=== PATIENT | female | born 1970 | race Caucasian/White ===

== ENCOUNTER 2017-08-28 07:17 | Inpatient (IN) | payer OTHER ==
--- NOTE | 2017-08-28 08:22 | HP ---
CHIEF COMPLAINT: Right lower quadrant abdominal pain. HISTORY OF PRESENT ILLNESS: The patient is a 47-year-old female who 5 days ago started having some r ight-sided back pain. Then yesterday after lunch it moved to be right lower quadrant abdominal pain associated with nausea, no vomiting, no fever. She has had loose stool and she had blood in her stoo l. PAST MEDICAL HISTORY: Hypothyroidism, hypertension, obesity, anxiety. PAST SURGICAL HISTORY: Shoulder surgery, wrist surgery, , hysterectomy, and lumpectomy. MEDICATIONS: Levothyroxine, lisinopril, Ambien, Paxil. ALLERGIES: She is allergic to IVP DYE, HYDROCODONE and BACTRIM. SOCIAL HISTORY: . She works for [employer]. No tobacco, rare alcohol. FAMILY HISTORY: Diabetes, hypertension and heart disease. PHYSICAL EXAMINATION: VITAL SIGNS: She is afebrile, pulse 82, blood pressure 124/90. GENERAL: Obese female lying still, awake, alert and oriented. HEENT: Unremarkable. LUNGS: Clear. HEART: Regular rate and rhythm. ABDOMEN: Obese, soft. She has a well healed surgical scar low midline. She has percussion tenderne ss in the right lower quadrant, no palpable masses. EXTREMITIES: Unremarkable. LABORATORY AND X-RAY FINDINGS: White count 10, H&H 13 and 41, platelet count 200. Urinalysis clear. Electrolytes are fine. Elevated glucose at 104. CT scan shows an appendicolith with a dilated appendix consistent with acute appendicitis. ASSESSMENT: Acute appendicitis. PLAN: We will attempt a laparoscopic approach for a laparoscopic appendectomy, possible open dependi ng on the degree of adhesions.
[2017-08-28] MEDS ORDERED: cefTRIAXone\\ROCEPHIN 2 GM in Sodium Chloride 0.9% 100 ML IVPB SCH (08:30)
[2017-08-28] MEDS ORDERED: Piperacillin/Tazobactam 4.5 GM VIAL ONE (09:09)
[2017-08-28] MEDS ORDERED: cefOXitin 2 GM in Sodium Chloride 0.9% 100 ML IVPB SCH (10:00)
[2017-08-28] MEDS ORDERED: Fentanyl 100 MCG/2 ML VIAL ONE ×4 (11:29→14:17)
[2017-08-28] MEDS ORDERED: Bupivacaine/Epinephrine 0.25% 30 ML VIAL ONE (13:10)
[2017-08-28] MEDS ORDERED: Succinylcholine Chloride 20 MG/ML 10 ml SYRINGE FS ONE (13:18)
[2017-08-28] MEDS ORDERED: Promethazine HCl 25 MG/ML VIAL IM PRN ×2 (14:04→14:11)
[2017-08-28] MEDS ORDERED: hydrALAZINE 20 MG/ML VIAL SLOW IVP PRN (14:04)
[2017-08-28] MEDS ORDERED: Ondansetron HCl/PF 4 MG/2 ML Vial IVP PRN ×2 (14:04→14:11)
[2017-08-28] MEDS ORDERED: HYDROcodone/Acetaminophen 10/325 mg Tablet PO PRN ×2 (14:04)
[2017-08-28] MEDS ORDERED: Dextrose 50% Abboject 50 ML SYRINGE SLOW IVP PRN (14:04)
[2017-08-28] MEDS ORDERED: Dextrose 5% in Water 1,000 ML IV PRN (14:04)
[2017-08-28] MEDS ORDERED: Promethazine HCl 25 MG/ML VIAL SLOW IVP PRN (14:11)
[2017-08-28] MEDS ORDERED: Morphine Sulfate 2 MG/ML SYRINGE SLOW IVP PRN (14:11)
--- NOTE | 2017-08-28 14:12 | OP ---
PREOPERATIVE DIAGNOSIS: Acute appendicitis. SURGEON: Louis Terry M.D. PROCEDURE PERFORMED: Laparoscopic appendectomy. INDICATIONS: A 47-year-old female who presented with a 12-hour history of right lower quadrant pain radiating to back associated with nausea. CT scan showed appendicitis. FINDINGS: Acute suppurative nonperforated appendicitis. PROCEDURE IN DETAIL: After informed consent was obtained, the patient was taken to the operating nick m and given general endotracheal anesthesia. She was placed in the supine position. Her abdomen was prepped and draped in usual fashion. She has had a previous low midline incision. So, I started on the right upper quadrant, made an incision, inserted Veress needle, insufflated the abdomen with 2 l iters of carbon dioxide. Utilizing a bladeless 5 mm trocar and 0 degree laparoscope, direct visual e ntry into the abdomen was performed. Pneumoperitoneum was then created to a pressure of 15 mmHg. Sh e had minimal adhesions along the anterior abdominal wall, so a 12 mm port was placed just below the umbilicus and another 5 mm port placed suprapubic. The mesoappendix divided with the LigaSure. The appendix divided utilizing a linear 45 mm white load stapler. The appendix placed in an Endosac cedrick georgina from the abdomen through the midline incision. Hemostasis assured. Wound irrigated. Irrigation fluid removed. The fascia closed with interrupted 0 Vicryl suture. The skin closed with interrupte d 4-0 Rapide. Dermabond applied. The patient tolerated the procedure well and was transferred to [facility] in good condition. Sponge and needle count verified correct x2.
[2017-08-28] MEDS ORDERED: Lactated Ringer's 1,000 ML IV SCH (14:15)
[2017-08-28] MEDS: Sodium Chloride 0.9% 1,000 ML IV SCH ×2 (15:36→17:52)
[2017-08-28 17:23] VITALS: TEMP 98.5
[2017-08-28] MEDS ORDERED: Ketorolac Tromethamine 30 MG/ML VIAL IVP SCH (18:00)
[2017-08-28] MEDS ORDERED: Piperacillin/Tazobactam 3.375 GM in Sodium Chloride 0.9% 100 ML IVPB SCH (18:00)
[2017-08-28] MEDS ORDERED: Famotidine/PF 20 mg/2ml Vial SLOW IVP SCH (21:00)
[2017-08-28] MEDS ORDERED: Famotidine 20 MG TAB PO SCH (21:00)
--- NOTE | 2017-08-29 04:06 | DIS ---
DISCHARGE DIAGNOSIS: Acute appendicitis. PROCEDURES DURING ADMISSION: Laparoscopic appendectomy. HOSPITAL COURSE: Patient was admitted, given IV antibiotics, taken to the operating room, where she underwent laparoscopic appendectomy. Postoperatively, she is doing well. Pain is controlled. She i s tolerating liquids. She is discharged home in good condition on Tylenol No. 3 and doxycycline. Emilie alvarado will follow up with me in 2 weeks.
[2017-08-29] MEDS ORDERED: Enoxaparin Sodium 40 MG/0.4 ML SYRINGE SC SCH (09:00)
== END 2017-08-28 18:04 | disposition home or self-care (01) | DRG 343 ==
LOC: ERS 07:17 → SURG A 09:36
PROVIDERS: ADMIT Surgery; ATTEND Surgery
PROC: 0DTJ4ZZ Resection of Appendix, Percutaneous Endoscopic Approach (ICD-10-PCS; principal; 2017-08-28)
DX: K35.80 Unspecified acute appendicitis (principal); I10 Essential (primary) hypertension; E03.9 Hypothyroidism, unspecified
CPT/HCPCS: 88304; J0696; J2270; J2543; J3010; J7050

== ENCOUNTER 2017-09-03 08:04 | Emergency (ER) | payer OTHER ==
[2017-09-03 08:28] LABS: #Eosinphils 0.2 thou/uL (0.0-0.7); #Lymphocytes 1.9 thou/uL (1.20-3.40); #Monocytes 0.6 thou/uL (0.11-0.59); #Neutrophils 6.2 thou/uL (1.40-6.50); %Basophils 0.5 % (0.0-1.0); %Eosinophils 2.5 % (0.0-10.0); %Lymphocytes 21.5 % (21.0-51.0); %Monocytes 6.9 % (0.0-10.0); %Neutrophils 68.7 % (42.0-75.0); Hemoglobin 14.2 g/dL (12.0-16.0); Mean Corpuscular HGB CONC 33.7 g/dL (32.0-36.0); Mean Corpuscular Volume 91.9 fL (78.0-98.0); Mean Platelet Volume 8.1 fL (7.4-10.4); Platelet Count 212 thou/uL (130-400); RBC Distribution Width 12.5 % (11.5-14.5); Red Blood Cell (RBC) Count 4.57 mill/uL (4.20-5.40)
[2017-09-03 08:47] LABS: ALT (SGPT) 45 U/L (8-55); AST (SGOT) 36 U/L (5-34); Albumin 4.5 g/dL (3.5-5.0); Alkaline Phosphatase 65 U/L (40-150); Anion Gap 12 mmol/L (10-20); BUN (Urea Nitrogen) 13 mg/dL (7.0-18.7); Bilirubin, Total 0.6 mg/dL (0.2-1.2); Calc. Creatinine Clearance 0 mL/min (70-130); Calcium 9.5 mg/dL (7.8-10.44); Carbon Dioxide 23 mmol/L (22-29); Chloride 108 mmol/L (98-107); Estimated GFR-MDRD 72; Globulin 2.5 g/dL (2.4-3.5); Glucose 111 mg/dL (70-105); Potassium 3.9 mmol/L (3.5-5.1); Sodium 139 mmol/L (136-145)
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
== END 2017-09-03 09:49 | disposition home or self-care (01) ==
LOC: ERS 08:04
DX: S20.219A Contusion of unspecified front wall of thorax, initial encounter (principal); S00.532A Contusion of oral cavity, initial encounter; S10.91XA Abrasion of unspecified part of neck, initial encounter; E03.9 Hypothyroidism, unspecified; I10 Essential (primary) hypertension; F41.9 Anxiety disorder, unspecified; F32.9 Major depressive disorder, single episode, unspecified; Z79.899 Other long term (current) drug therapy; V49.9XXA Car occupant (driver) (passenger) injured in unspecified traffic accident, initial encounter
CPT/HCPCS: 70450; 71250; 72125; 74176; 80053; 85025; 96374; G0390; J2270

== ENCOUNTER 2018-03-22 14:49 | Outpatient (CLI) | payer BC ==
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
--- NOTE | 2018-03-22 16:06 | ULT ---
LIMITED LEFT BREAST ULTRASOUND: Date: 03/22/18 PROVIDED CLINICAL HISTORY: Abnormal mammogram. FINDINGS: Limited sonographic interrogation of the left breast was performed in the region of mammographic conc gabrielle. A simple cyst measuring at least 3.1 cm is demonstrated, corresponding to the mammographic findi ng. IMPRESSION: BI-RADS Category 2 - Benign findings. Return to annual mammography recommended. POS: OFF
== END 2018-03-22 14:50 | disposition home or self-care (01) ==
LOC: BICMAMMO 14:49
PROVIDERS: ATTEND Family Medicine
DX: N63.10 Unspecified lump in the right breast, unspecified quadrant (principal); Z80.3 Family history of malignant neoplasm of breast
CPT/HCPCS: 77066; G0279

== ENCOUNTER 2019-01-08 12:28 | Outpatient (CLI) | payer OTHER ==
--- NOTE | 2019-01-08 13:32 | MMO ---
Right Breast MAMMO Unilat Diag DDI RT+KHANH. CLINICAL HISTORY: Patient is 48 years old and is seen for diagnostic exam and palpable abnormality in the right breast. The patient has the following family history of breast cancer: mother, 50's and sister. The patient has no personal history of cancer. The patient has a history of right Excisional Biopsy in 2012 - benign. VIEWS: The views performed were: right craniocaudal with tomosynthesis; right mediolateral oblique with tomosynthesis; and right mediolateral with tomosynthesis. FILMS COMPARED: The present examination has been compared to prior imaging studies performed at [facility] on 11/20/2011, 03/22/2018 and 01/08/2019. This study has been interpreted with the assistance of computer-aided detection. MAMMOGRAM FINDINGS: The breast is heterogeneously dense, which could obscure a lesion on mammography. There is a new focal asymmetry seen in the right breast at 1 o'clock. This corresponds to the region of palpable concern. Sonography of this region demonstrates no focal mass or shadowing. Given the absence of a sonographic finding and subtlety of mammographic abnormality, image guided biopsy is not felt feasible. IMPRESSION: NEW FOCAL ASYMMETRY IN THE RIGHT BREAST IS SUSPICIOUS. SURGICAL CONSULTATION IS RECOMMENDED. THE RESULTS OF THIS EXAM WERE SENT TO THE PATIENT. ACR BI-RADS Category 4 - Suspicious abnormality - biopsy should be considered MAMMOGRAPHY NOTE: 1. A negative mammogram report should not delay a biopsy if a dominant of clinically suspicious mass is present. 2. Approximately 10% to 15% of breast cancers are not detected by mammography. 3. Adenosis and dense breasts may obscure an underlying neoplasm. Reported by: RADHA ORDONEZ MD Electonically Signed: [id number]
--- NOTE | 2019-01-08 13:43 | ULT ---
LIMITED RIGHT BREAST ULTRASOUND: 01/08/2019 PROVIDED CLINICAL HISTORY: Right breast palpable abnormality. FINDINGS: Limited sonographic interrogation was performed of the right breast in the region of palpable concern . A simple appearing cyst is demonstrated which is unlikely to account for the palpable abnormality. No suspicious mass or area of shadowing is identified. IMPRESSION: No definite sonographic correlate to explain the palpable finding. Surgical consultation is recommend ed. BI-RADS category 4 - suspicious abnormality. POS: OFF
== END 2019-01-08 12:29 | disposition home or self-care (01) ==
LOC: BICMAMMO 12:28
PROVIDERS: ATTEND Family Medicine
DX: N63.12 Unspecified lump in the right breast, upper inner quadrant (principal)
CPT/HCPCS: G0279